=== PATIENT | female | born 1945 | race Caucasian/White ===

== ENCOUNTER → 2020-07-03 | Outpatient (CLI) | payer MEDICARE ==
[~2020-07-03] MED LIST: ASPIRIN EC81 MG PO; AUGMENTIN 875-1 EACH PO; CARVEDILOL12.5 MG PO; GLUCOPHAGE1000 MG PO; GLUCOTROL 10 MG10 MG PO; HYDROXYZINE PAM25 MG PO; IPRAT-ALBUT 0.5-3 ML NEB; LANTUS100 UNIT/1 SC; LASIX20 MG PO; LIPITOR TAB 2020 MG PO; METFORMIN HCL1000 MG PO; PREDNISONE20 MG PO; PRINIVIL5 MG PO; SPIRONOLACTONE25 MG PO; SYNTHROID88 MCG PO; TOPAMAX50 MG PO; TYLENOL 325MG325 MG PO; ZOFRAN ODT 4 MG4 MG PO
== END ==
LOC: HEART 5 06-28 13:30 → US 10:30 → CT 11:00
DX: Z01.818 Encounter for other preprocedural examination (principal); I83.899 Varicose veins of unspecified lower extremity with other complications; R60.0 Localized edema; I65.23 Occlusion and stenosis of bilateral carotid arteries; I87.1 Compression of vein
CPT/HCPCS: 36415; 82565; 84520; 93880; 93970; Q9967